=== PATIENT | female | born 1995 | race Caucasian/White ===

== ENCOUNTER → 2019-10-29 | Emergency (ER) | payer BC ==
[~2019-10-29] VITALS: Ht 157.5 cm; Wt 131.5 kg
== END | disposition home or self-care (01) ==
LOC: ER 21:33
DX: S90.01XA Contusion of right ankle, initial encounter (principal); W18.39XA Other fall on same level, initial encounter; Y93.89 Activity, other specified; Y92.488 Other paved roadways as the place of occurrence of the external cause; Y99.8 Other external cause status